=== PATIENT | male | born 1945 | race Caucasian/White ===

== ENCOUNTER 2018-07-11 08:30 | Outpatient (RCR) | payer MEDICARE, OTHER, SELFPAY ==
[2018-04-02 12:13] VITALS: BP 102/64; O2SAT 96; BMI 32.5
--- NOTE | 2018-04-02 15:50 | CR.IEVALNOTE ---
02/27/18 CABG 3-VESSEL CR Initial Assessment Report CR Cardiac Rehab Initial Assessment Start: 04/02/18 12:13 Freq: Status: Active Protocol: Document 04/02/18 12:13 ENIO (Rec: 04/02/18 12:46 ABNER [id number]) Cardiac Rehabilitation Exercise Risk Risk Moderate % 60 AICD No Pacemaker No Heart Rhythm SINUS RAHUL Right Arm Blood Pressure (90/60-120/80 mmHg) 102/64 Blood Pressure Method Manual Cuff/Auscultation BP Comment: 106/62 LEFT ARM Apical Resting Heart Rate: 49 Target Heart Rate: 80 Strength: Normal Respiratory Effort Non-Labored Pulse Oximetry (91-100 %) 96 Cardiac Rehabilitation Nutrition Evaluation Recent Lipid Blood Test No: NONE OBTAINED-REQUESTED Lipid Medications Yes Goal for Lipids LIPITOR 40MG History of Diabetes No Cardiac Rehabilitation Weight Management Plan Height 182.88 cm Weight 108.862 kg Body Mass Index (BMI) 32.5 Patient Goal(s) Lose 1-2 of Girth Vitamins & Supplements Yes Use None/Never Nutrition Evaluation Referral to Diabetes Education No Nurse/Patient Discussion Yes Patient Following Diet Plan No Patient's Nutritional Goals REVIEWED EATING HABITS. VERY OPEN TO CHANGE. DISCUSSED DRINKING MORE WATE,LESS BROWN SUGAR ON OATMEAL, ADD WALNUTS, LESS BREAD. EATS VERY LITTLE RED MEAT. Education Primary Language MACEDONIAN Supervisor Assembly Room Required No Hearing Ability Normal Visual Impairment No Limitations Visual Difficutly None Education on Intake Chest Pain Short of Breath Headache Lightheaded or Dizzy Musculoskeletal Pain General Malaise Tobacco Use N/A Hx Hypertension No Goal of BP <130/80 No Medications Reconciled Yes CR Psychosocial Evaluation Goal VERY MOTIVATED TO START EXERCISING WE WILL PROGRESS HIM SLOWLY WHICH WILL GIVE HIM CONFEDENCE TO CYCLE WITH HIS FRIENDS AGAIN. Identifies Stressors NOT BEING ABLE TO BIKE WITH HIS FRIENDS Psych Consult No Discussion with Patient Yes Psychotropic Medications No HQ Scoring Scale 0-4 = None Positive Support VERY POSITIVE ABOUT LIFE Situation LIVES AT HOME WITH . 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 SKIED OVER 30X AND COULD NOT MAKE IT DOWN THE HILL WITHOUT STOPPING. WENT TO HIS PHYSICIAN INTERNIST WHO REFERRED TO DR. VELAZCO WHO RECOMMENDED CABG. Treatment Prescribed for Individual Yes Needs No Treatment Change Yes: Please Continue with Cardiopulmonary Rehabilitation as Ordered Date 04/02/18 Document 04/02/18 13:06 CFS (Rec: 04/02/18 13:20 CFS [id number]) Cardiac Rehabilitation Exercise Fall Risk History of Falling (Immediate or No Previous) Secondary Diagnosis (More Than 2 Medical Yes Diagnoses) Ambulatory Aid None/bed rest/nurse assist IV/Heparin Lock No Gait/Transferring Normal/bedrest/immobile Mental Status Oriented to own ability Score Total 15 Risk Level Low Fall Risk Action Implement Ramona Fall Risk Precautions Comment Will start with saucer under physioball next to railing Assistive Devices None Uribe Activity Status Index 9.89 Home Exercise No Mode Comment: walking Duration Comment: 1-2mi Frequency Comment: daily Symptoms: Joint Pain Joint Stiffness Limited Range of Motion Body Alignment Posture Good Posture Ambulation Assistive Device None Orthotic/Prosthetic Devices or Brace: No Comment R shoulder limited ROM, L Hip pain, bilat knee replacements Exercise TM METS 3.60 Angina with Exercise no Exercise Tolerance Good CR Pre Exercise Evaluation Orientation Self Pulse Check LIZETTE PRE Scale Exercise Safety Equipment Orientation Warm Up/Cool Down Patient Short-term Goal(s) Start doing a spin class in 8 weeks to help get in shape for LTG. Patient Fci Goal(s) Return to biking up [place] with normal group and keep up with them in 12 weeks by doing HIIT on UB, NS, EP. CR Exercises Prescription Exercise Duration (minutes) 20 METs (resistance level) 4 Frequency 2x/wk RPE 11-14 Bicycle RPM (rpm) 60 Bicycle Exercise Duration (minutes) 20 Frequency 2x/wk RPE 11-14 Pounds 4 Number of Reps 12 Number of Sets 2 Frequency 1x/wk RPE 13-14 Comment sternal precautions Band Resistance 3 Number of Reps 12 Number of Sets 1 Frequency 1x/wk RPE 13-14 Comment sternal precautions
[2018-05-01 15:57] VITALS: BP 118/72
--- NOTE | 2018-05-01 16:03 | CR.REVALNOTE ---
CR Initial Assessment Report 02.27.18 CABG X 3 CR Cardiac Rehab Re-Assessment Start: 04/02/18 12:13 Freq: Status: Active Protocol: Document 05/01/18 15:47 AA (Rec: 05/01/18 15:57 AA [id number]) Cardiac Rehab Exercise Risk Re-Eval Dx: 02.27.18 CABG 3-VESSEL. HX CKD GERD Apical Resting Heart Rate: 79 Target Heart Rate Comment: High HR 130 Strength: Strong Pulse Rhythm: Regular CR Lifestyle Re-Assessment Home Exercise Yes Mode Comment Biking Duration Comment 60-90 min Frequency Comment 4x/wk Achieved Exercise Re-Evaluation LEN MET Goal 7.3 Bike MET Goal 22.39 TM MET Goal 7.65 RPE 15 Weights 5 Bands 4 Equipment Goals TM 8.5 LEN 8.0 UB 23.0 Number/Value 6 LVL 5 Progress to Goal INCREASE TOLERATED % Improvement TM 113% UB 126% LEN 64% Short Term Goal acheived. Has returned to road biking at home. 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 Will continue to road bike and bike Daniel Nichole. HIIT well tolerated on UB & LEN. Document 05/01/18 15:57 [facility] (Rec: 05/01/18 16:03 [facility] [id number]) Cardiac Rehab Exercise Risk Re-Eval Risk Moderate Heart Rhythm NSR Right Arm Blood Pressure (90/60-120/80 mmHg) 118/72 Blood Pressure Method Manual Cuff/Auscultation Cardiac Rehab Nutrition Re-Eval Lipids Re-Drawn No Education LONG DISCUSSION ON HOW TO REDUCE TRIGLYCERIDES. History of Diabetes No Weight 240 kg Progress to Weight Goal NO WEIGHT LOSS Dietary Consult Yes Nurse/Patient Discussion Yes Nutrition Class Yes Dietary Goal verbalized by Patient EAT HEALTHIER WHICH HE SEEMS TO BE DOING Progress Note LONG DISCUSSIONS ON HEALTHY EATING Education Hypertension 118/72 Medications METOPROLOL Education:Instruct JENS DONE Medication Reconciled DONE CR Psychosocial Re-Evaluation Progress to Goal FEELS VERY POSITIVE ON EXERCISE AND EATING HEALTHIER. 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
--- NOTE | 2018-05-01 16:06 | CR.REVALNOTE ---
CR RE Assessment Report CR Cardiac Rehab Re-Assessment Start: 04/02/18 12:13 Freq: Status: Active Protocol: Document 05/01/18 15:47 AA (Rec: 05/01/18 15:57 AA [id number]) Cardiac Rehab Exercise Risk Re-Eval Dx: 02.27.18 CABG 3-VESSEL. HX CKD GERD Apical Resting Heart Rate: 79 Target Heart Rate Comment: High HR 130 Strength: Strong Pulse Rhythm: Regular CR Lifestyle Re-Assessment Home Exercise Yes Mode Comment Biking Duration Comment 60-90 min Frequency Comment 4x/wk Achieved Exercise Re-Evaluation LEN MET Goal 7.3 Bike MET Goal 22.39 TM MET Goal 7.65 RPE 15 Weights 5 Bands 4 Equipment Goals TM 8.5 LEN 8.0 UB 23.0 Number/Value 6 LVL 5 Progress to Goal INCREASE TOLERATED % Improvement TM 113% UB 126% LEN 64% Short Term Goal acheived. Has returned to road biking at home. 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 Will continue to road bike and bike Daniel [place]. HIIT well tolerated on UB & LEN. Document 05/01/18 15:57 [facility] (Rec: 05/01/18 16:03 [facility] [id number]) Cardiac Rehab Exercise Risk Re-Eval Risk Moderate Heart Rhythm NSR Right Arm Blood Pressure (90/60-120/80 mmHg) 118/72 Blood Pressure Method Manual Cuff/Auscultation Cardiac Rehab Nutrition Re-Eval Lipids Re-Drawn No Education LONG DISCUSSION ON HOW TO REDUCE TRIGLYCERIDES. History of Diabetes No Weight 240 kg Progress to Weight Goal NO WEIGHT LOSS Dietary Consult Yes Nurse/Patient Discussion Yes Nutrition Class Yes Dietary Goal verbalized by Patient EAT HEALTHIER WHICH HE SEEMS TO BE DOING Progress Note LONG DISCUSSIONS ON HEALTHY EATING Education Hypertension 118/72 Medications METOPROLOL Education:Instruct JENS DONE Medication Reconciled DONE CR Psychosocial Re-Evaluation Progress to Goal FEELS VERY POSITIVE ON EXERCISE AND EATING HEALTHIER. 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
--- NOTE | 2018-05-01 16:07 | CR.REVALNOTE ---
CR RE Assessment Report 02.27.2018 CABG X3 CR Cardiac Rehab Re-Assessment Start: 04/02/18 12:13 Freq: Status: Active Protocol: Document 05/01/18 15:47 AA (Rec: 05/01/18 15:57 AA [id number]) Cardiac Rehab Exercise Risk Re-Eval Dx: 02.27.18 CABG 3-VESSEL. HX CKD GERD Apical Resting Heart Rate: 79 Target Heart Rate Comment: High HR 130 Strength: Strong Pulse Rhythm: Regular CR Lifestyle Re-Assessment Home Exercise Yes Mode Comment Biking Duration Comment 60-90 min Frequency Comment 4x/wk Achieved Exercise Re-Evaluation LEN MET Goal 7.3 Bike MET Goal 22.39 TM MET Goal 7.65 RPE 15 Weights 5 Bands 4 Equipment Goals TM 8.5 LEN 8.0 UB 23.0 Number/Value 6 LVL 5 Progress to Goal INCREASE TOLERATED % Improvement TM 113% UB 126% LEN 64% Short Term Goal acheived. Has returned to road biking at home. 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 Will continue to road bike and bike [place]. HIIT well tolerated on UB & LEN. Document 05/01/18 15:57 [facility] (Rec: 05/01/18 16:03 [facility] [id number]) Cardiac Rehab Exercise Risk Re-Eval Risk Moderate Heart Rhythm NSR Right Arm Blood Pressure (90/60-120/80 mmHg) 118/72 Blood Pressure Method Manual Cuff/Auscultation Cardiac Rehab Nutrition Re-Eval Lipids Re-Drawn No Education LONG DISCUSSION ON HOW TO REDUCE TRIGLYCERIDES. History of Diabetes No Weight 240 kg Progress to Weight Goal NO WEIGHT LOSS Dietary Consult Yes Nurse/Patient Discussion Yes Nutrition Class Yes Dietary Goal verbalized by Patient EAT HEALTHIER WHICH HE SEEMS TO BE DOING Progress Note LONG DISCUSSIONS ON HEALTHY EATING Education Hypertension 118/72 Medications METOPROLOL Education:Instruct JENS DONE Medication Reconciled DONE CR Psychosocial Re-Evaluation Progress to Goal FEELS VERY POSITIVE ON EXERCISE AND EATING HEALTHIER. 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
--- NOTE | 2018-05-09 09:46 | CR.EDUC ---
CR Education Report JOSÉ MIGUEL ULLOA CR Education Start: 04/02/18 12:13 Freq: Status: Active Protocol: Document 04/03/18 09:40 DEVAUGHN (Rec: 04/03/18 09:40 DEVAUGHN [id number]) CR Education Education HOLISTIC NUTRITION AND MEDITATION WITH MICHELA Document 04/04/18 13:36 JCP (Rec: 04/04/18 13:37 JCP [id number]) CR Education Education TOLERATED EXERCISE WELL. WILL CONTINUE TO INCREASE HIS RESISTANCE. HE IS EAGER TO IMPROVE. RECEIVED HIS LIPIDS WILL REVIEW WITH HIM.SILVIA Document 04/17/18 09:40 DEVAUGHN (Rec: 04/17/18 09:41 DEVAUGHN [id number]) CR Education Education MRSA WITH SHAD Document 04/24/18 15:41 JCP (Rec: 04/24/18 15:42 JCP [id number]) CR Education Education ANTI INFLAMMATORY FOODS AND MEDITATION Document 05/01/18 12:06 JCP (Rec: 05/01/18 12:06 JCP [id number]) CR Education Education MET WITH EDITH NIXON RD Document 05/08/18 15:56 JCP (Rec: 05/08/18 15:57 JCP [id number]) CR Education Education MET WITH ALEJANDRO ELIZABETH ON METS Education DISCUSSION ON CAUTION WITH HIS MOUNTAIN BIKING. CONTINUE TALKS ON HIS EATING HABITS. Document 05/09/18 09:44 JCP (Rec: 05/09/18 09:46 JCP [id number]) CR Education Education AGAIN REINFORCED NOT TO MOUNTAIN BIKE UNTIL HE IS 3 MONTHS POST STERNOTOMY. HE IS MOUNTAIN BIKING HE STATES ON [place]. ALSO CONTINUE TO TALK TO HIM ABOUT HIS UNHEALTHY FOOD CHOICES.SILVIA
[2018-05-29 15:45] VITALS: BP 118/68
[2018-06-27 08:10] VITALS: BP 120/80
[2018-07-11 10:36] VITALS: BMI 32.6
[2018-07-11 15:43] VITALS: BP 110/76
== END 2018-07-17 10:48 ==
LOC: CAR 08:30
PROVIDERS: Family Provider Physician Assistant; PCP Physician Assistant; Visit Provider Physician Assistant Surgical
DX: Z95.1 Presence of aortocoronary bypass graft (principal)
CPT/HCPCS: 93798

== ENCOUNTER → 2018-09-24 10:33 | Outpatient (CLI) | payer MEDICARE, OTHER, SELFPAY ==
--- NOTE | 2018-09-24 | DI.RAD.S_ITS ---
PROCEDURE: XR SHOULDER RT MIN 2V INDICATIONS: PAIN IN RIGHT SHOULDER TECHNIQUE: 3 views of the shoulder were acquired. COMPARISON: None. FINDINGS: Bones: No fractures or dislocations. No suspicious bony lesions. Visualized ribs appear intact. Severe right shoulder glenohumeral joint degeneration. There is also moderate to severe acromioclavicular degenerative joint disease. Subcentimeter possible loose body projecting near the coracoid process IMPRESSION: Severe right shoulder joint degeneration. Possible loose body. Dictated by: Sheldon Magana M.D. on 09/24/2018 at 12:25 Approved by: Sheldon Magana M.D. on 09/24/2018 at 12:27
== END ==
PROVIDERS: Family Provider Physician Assistant; PCP Physician Assistant; Visit Provider Physician Assistant
DX: M25.511 Pain in right shoulder (principal); M19.011 Primary osteoarthritis, right shoulder
CPT/HCPCS: 73030

== ENCOUNTER → 2018-10-10 09:59 | Outpatient (CLI) | payer MEDICARE, OTHER, SELFPAY ==
--- NOTE | 2018-10-10 | DI.US.S_ITS ---
PROCEDURE: US RENAL COMPLETE INDICATIONS: SCREENING TECHNIQUE: Real-time scanning was performed of the kidneys and bladder, with image documentation. COMPARISON: None. FINDINGS: Kidneys: Kidneys are normal in size. Right kidney measures 11.6 cm long; left kidney measures 11.1 cm long. Right renal cortical thickness is 1.4 cm; left renal cortical thickness is 1.7 cm. Renal cortical echotexture is normal. No hydronephrosis or nephrolithiasis on the right but there is a 8mm calculus in the inferior third collecting system of the left kidney not causing hydronephrosis. No suspicious solid mass lesions. Bladder: Pre-void bladder volume is 159 mL. Post-void residual is 12 mL. Pre-void images demonstrate no intraluminal masses or stones. On pre-void images, bilateral ureteral jets are noted with color Doppler interrogation. (Of note, ureteral jets may not be detectable in up to 25% of cases due to insufficient differences in specific gravity between ureteral and bladder urine). Miscellaneous: No free pelvic fluid. IMPRESSION: Single 8mm stone found at the inferior third collecting system of the left kidney. No hydronephrosis or nephrolithiasis found otherwise. Normal bladder function. Dictated by: Arnulfo Alvarado M.D. on 10/10/2018 at 16:15 Approved by: Arnulfo Alvarado M.D. on 10/10/2018 at 16:16
[2018-10-10 12:12] LABS: Creatinine Urine Random 97.8 mg/dL
[2018-10-10 12:15] LABS: Protein (Total) Urine Random < 5 mg/dL (0-12); Protein Creatinine Ratio Urine 0.05 GRAM/24H
== END ==
PROVIDERS: Family Provider Physician Assistant; PCP Physician Assistant; Referring Provider Student in an Organized Health Care Education/Training Program; Visit Provider Physician Assistant
DX: N20.0 Calculus of kidney (principal); N18.3 Chronic kidney disease, stage 3 (moderate); R80.9 Proteinuria, unspecified
CPT/HCPCS: 76770; 82570; 84156

== ENCOUNTER → 2019-01-01 07:51 | Outpatient (CLI) | payer MEDICARE, OTHER, SELFPAY ==
[2019-01-01 08:02] LABS: RBC Urine None Seen (0-5/HPF)
[2019-01-01 08:51] LABS: Appearance Urine UA CLEAR; Bilirubin Urine UA NEGATIVE (NEGATIVE); Color Urine UA YELLOW; Glucose Urine UA NEGATIVE (Negative); Ketones Urine UA NEGATIVE (NEGATIVE); Leukocyte Esterase Urine UA NEGATIVE (NEGATIVE); Nitrite Urine UA NEGATIVE (Negative); Occult Blood Urine UA NEGATIVE (Negative); Protein Urine UA NEGATIVE (Negative); Urobilinogen Urine UA 0.2 E.U./dL (0.2); pH Urine UA 6.5 (4.5-8.0)
[2019-01-01 08:56] LABS: Hematocrit 40.8 % (41-53); Hemoglobin 13.6 g/dL (13.5-17.5)
[2019-01-01 09:36] LABS: BUN Creatinine Ratio 18.6 (6-22); Blood Urea Nitrogen 26 mg/dL (9-20); Calcium 9.2 mg/dL (8.4-10.2); Carbon Dioxide 25 mmol/L (22-32); Chloride 107 mmol/L (98-107); Glucose 94 mg/dL (80-110); HEMOLYSIS < 15 (0-50); Phosphorous 3.8 mg/dL (2.3-3.7); Potassium 4.3 mmol/L (3.4-5.1); Sodium 140 mmol/L (137-145)
[2019-01-01 09:53] LABS: Bacteria Urine Few (2-10); WBC Urine 0-1/HPF (0-5/HPF)
[2019-01-01 09:54] LABS: HEMOLYSIS < 15 (0-50); Iron 48 ug/dL (49-181)
[2019-01-01 09:55] LABS: Creatinine Urine Random 103.5 mg/dL
[2019-01-01 10:01] LABS: Protein (Total) Urine Random < 5 mg/dL (0-12); Protein Creatinine Ratio Urine 0.04 GRAM/24H
[2019-01-01 10:06] LABS: Ferritin 14.8 ng/mL (17.9-464); Percent Iron Saturation 15 % (20-50); Total Iron Binding Capacity 323 ug/dL (261-462); Transferrin 244 mg/dL (206-381)
[2019-01-04 15:42] LABS: Parathyroid Hormone Int 50 pg/mL (14-64)
== END ==
PROVIDERS: Family Provider Physician Assistant; PCP Physician Assistant; Visit Provider Student in an Organized Health Care Education/Training Program
DX: N05.9 Unspecified nephritic syndrome with unspecified morphologic changes (principal); D50.0 Iron deficiency anemia secondary to blood loss (chronic); D64.9 Anemia, unspecified; E83.30 Disorder of phosphorus metabolism, unspecified; R80.9 Proteinuria, unspecified; N30.00 Acute cystitis without hematuria; N25.81 Secondary hyperparathyroidism of renal origin
CPT/HCPCS: 36415; 80048; 81001; 82570; 82728; 83540; 83550; 83970; 84100; 84156; 85014; 85018; 87086

== ENCOUNTER → 2019-05-07 10:16 | Outpatient (CLI) | payer MEDICARE, OTHER, SELFPAY ==
[2019-05-07 11:19] LABS: BUN Creatinine Ratio 21.4 (6-22); Blood Urea Nitrogen 30 mg/dL (9-20); Calcium 9.2 mg/dL (8.4-10.2); Carbon Dioxide 25 mmol/L (22-32); Chloride 105 mmol/L (98-107); Glucose 84 mg/dL (80-110); HEMOLYSIS < 15 (0-50); Potassium 4.3 mmol/L (3.4-5.1); Sodium 140 mmol/L (137-145)
== END ==
PROVIDERS: Family Provider Physician Assistant; PCP Physician Assistant; Visit Provider Student in an Organized Health Care Education/Training Program
DX: N05.9 Unspecified nephritic syndrome with unspecified morphologic changes (principal)
CPT/HCPCS: 36415; 80048

== ENCOUNTER → 2019-09-22 19:04 | Outpatient (ROUT) | payer MEDICARE, OTHER, SELFPAY ==
[2019-09-22 19:10] LABS: Add Manual Diff / Slide Review NO; Basophils Absolute Auto 0 /uL (0-100); Basophils Percent Auto 0.5 % (0-2); Eosinophils Absolute Auto 100 /uL (0-450); Eosinophils Percent Auto 1.5 % (2-4); Hemoglobin 14.4 g/dL (13.5-17.5); Lymphocytes Absolute Auto 1700 /uL (1100-4500); Lymphocytes Percent Auto 20.2 % (25-40); Mean Corpuscular HGB Conc 33.6 % (30-36); Mean Corpuscular Hemoglobin 29.4 PG (26-34); Mean Corpuscular Volume 87.5 fL (80-100); Monocytes Absolute Auto 200 /uL (0-900); Monocytes Percent Auto 1.9 % (3-14); Neutrophils Absolute Auto 6300 /uL (1500-7000); Neutrophils Percent Auto 75.9 % (50-75); Platelet Count 212 X10^3/uL (150-400); Red Blood Cell Count 4.92 X10^6/uL (4.5-5.9); Red Cell Distribution Width 13.2 % (11.6-14.8); White Blood Cell Count 8.3 X10^3/uL (4.5-11.0)
[2019-09-22 19:16] LABS: Alanine Aminotransferase 19 IU/L (<50); Albumin 4.3 g/dL (3.5-5.0); Albumin Globulin Ratio 1.5 (1.0-2.8); Alkaline Phosphatase 80 U/L (38-126); Aspartate Aminotransferase 27 IU/L (17-59); BUN Creatinine Ratio 20.7 (6-22); Bilirubin Total 0.6 mg/dL (0.2-1.3); Blood Urea Nitrogen 29 mg/dL (9-20); Calcium 9.6 mg/dL (8.4-10.2); Carbon Dioxide 24 mmol/L (22-32); Chloride 104 mmol/L (98-107); Cholesterol 270 mg/dL (140-199); Estimated Glomerular Filt Rate 49.8 mL/min (>60); Globulin 2.9 g/dL (1.7-4.1); Glucose 98 mg/dL (80-110); HDL Cholesterol 47 mg/dL (40-60); HEMOLYSIS < 15 (0-50); LDL Cholesterol Calculated 189 mg/dL (<100); Sodium 138 mmol/L (137-145); Total Protein 7.2 g/dL (6.3-8.2); Triglycerides 172 mg/dL (35-150)
== END ==
PROVIDERS: Family Provider Physician Assistant; PCP Physician Assistant; Visit Provider Physician Assistant
DX: I25.10 Atherosclerotic heart disease of native coronary artery without angina pectoris (principal); E78.5 Hyperlipidemia, unspecified; K21.9 Gastro-esophageal reflux disease without esophagitis
CPT/HCPCS: 80053; 80061; 85025

== ENCOUNTER → 2019-11-10 11:36 | Outpatient (CLI) | payer MEDICARE, OTHER, SELFPAY ==
[2019-11-10 12:06] LABS: Hematocrit 41.8 % (41-53); Hemoglobin 14.2 g/dL (13.5-17.5)
[2019-11-10 12:18] LABS: BUN Creatinine Ratio 19.3 (6-22); Blood Urea Nitrogen 29 mg/dL (9-20); Calcium 9.4 mg/dL (8.4-10.2); Carbon Dioxide 23 mmol/L (22-32); Chloride 107 mmol/L (98-107); Glucose 94 mg/dL (80-110); HEMOLYSIS < 15 (0-50); Potassium 4.6 mmol/L (3.4-5.1); Sodium 140 mmol/L (137-145)
[2019-11-13 15:23] LABS: Parathyroid Hormone Int 23 pg/mL (14-64)
== END ==
PROVIDERS: Family Provider Physician Assistant; PCP Physician Assistant; Referring Provider Student in an Organized Health Care Education/Training Program; Visit Provider Student in an Organized Health Care Education/Training Program
DX: N05.9 Unspecified nephritic syndrome with unspecified morphologic changes (principal); D64.9 Anemia, unspecified; N25.81 Secondary hyperparathyroidism of renal origin; R80.9 Proteinuria, unspecified
CPT/HCPCS: 36415; 80048; 83970; 85014; 85018

== ENCOUNTER → 2019-11-13 14:31 | Outpatient (CLI) | payer MEDICARE, OTHER, SELFPAY ==
[2019-11-13 15:49] LABS: Creatinine Urine Random 117.4 mg/dL; Protein (Total) Urine Random 6 mg/dL (0-12); Protein Creatinine Ratio Urine 0.05 GRAM/24H
== END ==
PROVIDERS: Family Provider Physician Assistant; PCP Physician Assistant; Referring Provider Student in an Organized Health Care Education/Training Program; Visit Provider Student in an Organized Health Care Education/Training Program
DX: N05.9 Unspecified nephritic syndrome with unspecified morphologic changes (principal); D64.9 Anemia, unspecified; N25.81 Secondary hyperparathyroidism of renal origin; R80.9 Proteinuria, unspecified
CPT/HCPCS: 82570; 84156

== ENCOUNTER → 2020-05-21 20:17 | Outpatient (ROUT) | payer MEDICARE, OTHER, SELFPAY ==
[2020-05-21 20:31] LABS: Alanine Aminotransferase 21 IU/L (<50); Albumin Globulin Ratio 1.4 (1.0-2.8); Alkaline Phosphatase 102 U/L (38-126); Aspartate Aminotransferase 34 IU/L (17-59); BUN Creatinine Ratio 17.2 (6-22); Bilirubin Total 0.7 mg/dL (0.2-1.3); Blood Urea Nitrogen 26 mg/dL (9-20); Carbon Dioxide 24 mmol/L (22-32); Chloride 107 mmol/L (98-107); Cholesterol 183 mg/dL (140-199); Estimated Glomerular Filt Rate 45.7 mL/min (>60); Globulin 2.9 g/dL (1.7-4.1); Glucose 117 mg/dL (80-110); HDL Cholesterol 49 mg/dL (40-60); HEMOLYSIS 25 (0-50); LDL Cholesterol Calculated 95 mg/dL (<100); Potassium 4.4 mmol/L (3.4-5.1); Sodium 138 mmol/L (137-145); Total Protein 6.9 g/dL (6.3-8.2); Triglycerides 195 mg/dL (35-150)
[2020-05-21 21:08] LABS: Add Manual Diff / Slide Review NO; Basophils Absolute Auto 100 /uL (0-100); Basophils Percent Auto 0.8 % (0-2); Eosinophils Absolute Auto 100 /uL (0-450); Eosinophils Percent Auto 1.7 % (2-4); Hematocrit 42.8 % (41-53); Hemoglobin 14.4 g/dL (13.5-17.5); Lymphocytes Absolute Auto 1600 /uL (1100-4500); Lymphocytes Percent Auto 22.4 % (25-40); Mean Corpuscular HGB Conc 33.7 % (30-36); Mean Corpuscular Hemoglobin 29.6 PG (26-34); Monocytes Absolute Auto 600 /uL (0-900); Monocytes Percent Auto 8.1 % (3-14); Neutrophils Absolute Auto 4700 /uL (1500-7000); Platelet Count 191 X10^3/uL (150-400); Red Blood Cell Count 4.86 X10^6/uL (4.5-5.9); Red Cell Distribution Width 13.7 % (11.6-14.8)
[2020-05-23 07:10] LABS: PSA Free % 30.8 % (.); PSA, Total 2.5 ng/mL (0.0-4.0)
== END ==
PROVIDERS: Family Provider Physician Assistant; PCP Physician Assistant; Visit Provider Physician Assistant
DX: N40.0 Benign prostatic hyperplasia without lower urinary tract symptoms (principal); E78.5 Hyperlipidemia, unspecified; I25.10 Atherosclerotic heart disease of native coronary artery without angina pectoris
CPT/HCPCS: 80053; 80061; 84153; 84154; 85025

== ENCOUNTER → 2020-06-02 09:05 | Outpatient (CLI) | payer MEDICARE, OTHER, SELFPAY ==
[2020-06-02 09:49] LABS: Hematocrit 41.7 % (41-53); Hemoglobin 13.9 g/dL (13.5-17.5)
[2020-06-02 10:22] LABS: BUN Creatinine Ratio 16.9 (6-22); Blood Urea Nitrogen 25 mg/dL (9-20); Calcium 9.2 mg/dL (8.4-10.2); Carbon Dioxide 22 mmol/L (22-32); Chloride 108 mmol/L (98-107); Estimated Glomerular Filt Rate 46.7 mL/min (>60); Glucose 100 mg/dL (80-110); HEMOLYSIS < 15 (0-50); Potassium 4.8 mmol/L (3.4-5.1); Sodium 138 mmol/L (137-145)
[2020-06-02 11:18] LABS: Protein (Total) Urine Random 5 mg/dL (0-12); Protein Creatinine Ratio Urine 0.03 GRAM/24H
[2020-06-03 07:09] LABS: Parathyroid Hormone Int 51 pg/mL (15-65)
[2020-06-03 09:32] LABS: Cholesterol 208 mg/dL (140-199); HDL Cholesterol 50 mg/dL (40-60); LDL Cholesterol Calculated 123 mg/dL (<100); Triglycerides 173 mg/dL (35-150)
[2020-06-04 07:09] LABS: PSA Free % 32.9 % (.); PSA, Total 3.1 ng/mL (0.0-4.0)
== END ==
PROVIDERS: Family Provider Physician Assistant; PCP Physician Assistant; Referring Provider Student in an Organized Health Care Education/Training Program; Visit Provider Student in an Organized Health Care Education/Training Program
DX: N05.9 Unspecified nephritic syndrome with unspecified morphologic changes (principal); D64.9 Anemia, unspecified; R80.9 Proteinuria, unspecified; I25.10 Atherosclerotic heart disease of native coronary artery without angina pectoris; N25.81 Secondary hyperparathyroidism of renal origin
CPT/HCPCS: 36415; 80048; 80061; 82570; 83970; 84153; 84154; 84156; 85014; 85018

== ENCOUNTER → 2021-04-12 14:32 | Outpatient (CLI) | payer MEDICARE, OTHER, SELFPAY ==
[2021-04-12 15:40] LABS: Hematocrit 39.3 % (41-53)
[2021-04-12 15:48] LABS: BUN Creatinine Ratio 18.1 (6-22); Blood Urea Nitrogen 26 mg/dL (9-20); Calcium 9.1 mg/dL (8.4-10.2); Carbon Dioxide 26 mmol/L (22-32); Chloride 108 mmol/L (98-107); Estimated Glomerular Filt Rate 48.1 mL/min (>60); Glucose 107 mg/dL (80-110); HEMOLYSIS 21 (0-50); Potassium 4.8 mmol/L (3.4-5.1); Sodium 141 mmol/L (137-145)
[2021-04-12 16:05] LABS: Creatinine Urine Random 111.3 mg/dL; Protein (Total) Urine Random 6 mg/dL (0-12); Protein Creatinine Ratio Urine 0.05 GRAM/24H
[2021-04-13 08:10] LABS: Parathyroid Hormone Int 44 pg/mL (15-65)
== END ==
PROVIDERS: Family Provider Physician Assistant; PCP Physician Assistant; Referring Provider Student in an Organized Health Care Education/Training Program; Visit Provider Student in an Organized Health Care Education/Training Program
DX: N05.9 Unspecified nephritic syndrome with unspecified morphologic changes (principal); D64.9 Anemia, unspecified; N25.81 Secondary hyperparathyroidism of renal origin; R80.9 Proteinuria, unspecified
CPT/HCPCS: 36415; 80048; 82570; 83970; 84156; 85014; 85018

== ENCOUNTER → 2021-05-06 09:59 | Outpatient (CLI) | payer MEDICARE, OTHER, SELFPAY ==
--- NOTE | 2021-05-06 14:50 | DIET.PN ---
Dietary Progress Note Assessment: 75y M attending RD visit c his for help with dietary reccs for CKD3 and recurrent kidney stones. Pt is active 75y male who rides bicycle 1.5h 3x/w socially. He eats relatively healthy diet including fresh fruits and veggies with intake 3 bottles of beer each week. Pt feels the worst part of his diet is the occasional [employer] TV dinner at home. When eating out, chooses healthy, lite options. Pt is interested in nutrition education to reduce risk of kidney stone formation and to preserve renal fxn. HT: 6'1 WT: 250# BMI: 33 Labs: Renal Fx Trends x3y: eGFR 46-50L, Cr 1.4 H, K+ 4.0-4.8 WNL, no phosphorus labs on record Pt gets Litholink testing q6mo with kidney stone risk factors of elevated urine oxalates, elevated urine acid, and decreased urine volume. Nutrition Diagnosis: altered nutrition related laboratory values (renal) r/t undesirable food choices aeb pt has CKD3 and recurrent kidney stones, eGFR 50, Cr 1.4, urine volume 1.5L, uOxalate 46, urine pH 5.85, pt desires nutrition interventions to decrease risk of kidney stones and preserve renal fxn. Interventions: 1. Provided pt handout on Healthy Convenience Meals which limit sodium, saturated fat, calories, and provide adequate fiber. Pt will use document when purchasing convenience meals. 2. Educated pt on CKD3 while reviewing labs. Educated pt on kidney friendly, low sodium, lean proteins to eat in small portions while reducing intake beans/nuts/seeds secondary to oxalate content. 3. Educated pt on CKD3 while reviewing labs. Educated pt on high and low potassium foods. Provided renal nutrition plate document and collaborated c pt and on modifications to usual intake including limiting bananas and non-boiled potatoes. 4. Educated pt and about phosphate food additives. Practiced reading food labels together to identify sources of phosphate ingredients. 5. Using Kidney Stone Nutrition handout, reviewed strategies to decrease uOxalate, upH, and increase urine volume. Pt will incorporate more low-potassium fruits and veggies into diet, will continue to avoid beans/nuts/seeds, consume calcium rich foods with each meal to bind oxalates, and will aim to drink water throughout the day rather than only when feeling thirsty. EER: 2g Na and 2g K+ restriction Monitoring/Evaluations: f/u in 6mo to review labs and refine nutrition interventions
== END ==
PROVIDERS: Family Provider Physician Assistant; PCP Physician Assistant; Referring Provider Physician Assistant; Visit Provider Physician Assistant
DX: N18.31 Chronic kidney disease, stage 3a (principal); Z87.442 Personal history of urinary calculi; E66.9 Obesity, unspecified; Z68.33 Body mass index [BMI] 33.0-33.9, adult; Z71.3 Dietary counseling and surveillance
CPT/HCPCS: 97802

== ENCOUNTER → 2022-06-26 10:20 | Outpatient (CLI) | payer MEDICARE, OTHER, SELFPAY ==
[2022-06-26 15:02] LABS: Creatinine Urine Random 96.1 mg/dL
[2022-06-26 15:03] LABS: Protein (Total) Urine Random < 5 mg/dL (0-12); Protein Creatinine Ratio Urine 0.05 GRAM/24H
[2022-06-26 15:06] LABS: Hematocrit 38.7 % (41-53)
[2022-06-26 15:23] LABS: BUN Creatinine Ratio 17.7 (6-22); Blood Urea Nitrogen 28 mg/dL (9-20); Calcium 8.6 mg/dL (8.4-10.2); Carbon Dioxide 26 mmol/L (22-32); Chloride 105 mmol/L (98-107); Estimated Glomerular Filt Rate 46 mL/min (>60); Glucose 86 mg/dL (80-110); HEMOLYSIS < 15 (0-50); Potassium 4.3 mmol/L (3.4-5.1); Sodium 140 mmol/L (137-145)
[2022-06-27 05:12] LABS: Parathyroid Hormone Int 64 pg/mL (15-65)
== END ==
PROVIDERS: Family Provider Physician Assistant; PCP Physician Assistant; Referring Provider Student in an Organized Health Care Education/Training Program; Visit Provider Student in an Organized Health Care Education/Training Program
DX: N05.9 Unspecified nephritic syndrome with unspecified morphologic changes (principal); D64.9 Anemia, unspecified; N25.81 Secondary hyperparathyroidism of renal origin; R80.9 Proteinuria, unspecified
CPT/HCPCS: 36415; 80048; 82570; 83970; 84156; 85014; 85018

== ENCOUNTER → 2022-11-24 12:56 | Outpatient (CLI) | payer MEDICARE, OTHER, SELFPAY ==
[2022-11-24 13:18] LABS: Hematocrit 38.8 % (41-53); Hemoglobin 12.8 g/dL (13.5-17.5)
[2022-11-24 13:42] LABS: BUN Creatinine Ratio 15.6 (6-22); Blood Urea Nitrogen 23 mg/dL (9-20); Calcium 8.7 mg/dL (8.4-10.2); Carbon Dioxide 24 mmol/L (22-32); Chloride 103 mmol/L (98-107); Estimated Glomerular Filt Rate 49 mL/min (>60); Glucose 80 mg/dL (80-110); HEMOLYSIS < 15 (0-50); Potassium 4.6 mmol/L (3.4-5.1); Sodium 137 mmol/L (137-145)
[2022-11-24 14:30] LABS: Creatinine Urine Random 75.1 mg/dL; Protein (Total) Urine Random 6 mg/dL (0-12); Protein Creatinine Ratio Urine 0.07 GRAM/24H
[2022-11-25 09:56] LABS: Parathyroid Hormone Int 88 pg/mL (15-65)
== END ==
PROVIDERS: Family Provider Physician Assistant; PCP Physician Assistant; Referring Provider Student in an Organized Health Care Education/Training Program; Visit Provider Student in an Organized Health Care Education/Training Program
DX: N05.9 Unspecified nephritic syndrome with unspecified morphologic changes (principal); D64.9 Anemia, unspecified; N25.81 Secondary hyperparathyroidism of renal origin; R80.9 Proteinuria, unspecified
CPT/HCPCS: 36415; 80048; 82570; 83970; 84156; 85014; 85018

== ENCOUNTER → 2023-07-13 09:58 | Outpatient (CLI) | payer MEDICARE, OTHER, SELFPAY ==
[2023-07-13 11:51] LABS: Hematocrit 39.6 % (41-53); Hemoglobin 13.2 g/dL (13.5-17.5)
[2023-07-13 12:27] LABS: BUN Creatinine Ratio 19.3 (6-22); Blood Urea Nitrogen 27 mg/dL (9-20); Calcium 9.1 mg/dL (8.4-10.2); Carbon Dioxide 27 mmol/L (22-32); Chloride 104 mmol/L (98-107); Estimated Glomerular Filt Rate 52 mL/min (>60); Glucose 107 mg/dL (80-110); HEMOLYSIS < 15 (0-50); Sodium 136 mmol/L (137-145)
[2023-07-13 13:10] LABS: Creatinine Urine Random 89.1 mg/dL
[2023-07-13 13:43] LABS: Protein (Total) Urine Random < 5 mg/dL (0-12); Protein Creatinine Ratio Urine 0.05 GRAM/24H
[2023-07-14 11:23] LABS: Parathyroid Hormone Int 61 pg/mL (15-65)
== END ==
PROVIDERS: Family Provider Physician Assistant; PCP Physician Assistant; Referring Provider Student in an Organized Health Care Education/Training Program; Visit Provider Student in an Organized Health Care Education/Training Program
DX: N05.9 Unspecified nephritic syndrome with unspecified morphologic changes (principal); R80.9 Proteinuria, unspecified; D64.9 Anemia, unspecified; N25.81 Secondary hyperparathyroidism of renal origin
CPT/HCPCS: 36415; 80048; 82570; 83970; 84156; 85014; 85018

== ENCOUNTER → 2024-02-07 09:28 | Outpatient (CLI) | payer MEDICARE, OTHER, SELFPAY ==
[2024-02-07 10:09] LABS: Hematocrit 39.9 % (41-53); Hemoglobin 13.1 g/dL (13.5-17.5)
[2024-02-07 12:33] LABS: Creatinine Urine Random 79.8 mg/dL
[2024-02-07 12:34] LABS: Protein (Total) Urine Random < 5 mg/dL (0-12); Protein Creatinine Ratio Urine 0.06 GRAM/24H
[2024-02-07 13:03] LABS: BUN Creatinine Ratio 16.8 (6-22); Blood Urea Nitrogen 25 mg/dL (9-20); Calcium 9.4 mg/dL (8.4-10.2); Carbon Dioxide 25 mmol/L (22-32); Chloride 106 mmol/L (98-107); Estimated Glomerular Filt Rate 48 mL/min (>60); Glucose 98 mg/dL (80-110); HEMOLYSIS < 15 (0-50); Potassium 4.6 mmol/L (3.4-5.1); Sodium 137 mmol/L (137-145)
[2024-02-12 07:58] LABS: Parathyroid Hormone Int 41 pg/mL (15-65)
== END ==
PROVIDERS: Family Provider Physician Assistant; PCP Physician Assistant; Referring Provider Student in an Organized Health Care Education/Training Program; Visit Provider Student in an Organized Health Care Education/Training Program
DX: N05.9 Unspecified nephritic syndrome with unspecified morphologic changes (principal); D70.9 Neutropenia, unspecified; D63.1 Anemia in chronic kidney disease; N25.81 Secondary hyperparathyroidism of renal origin; R80.9 Proteinuria, unspecified
CPT/HCPCS: 36415; 80048; 82570; 83970; 84156; 85014; 85018

== ENCOUNTER → 2024-04-14 10:06 | Outpatient (CLI) | payer MEDICARE, OTHER, SELFPAY ==
--- NOTE | 2024-04-14 10:08 | DI.RAD.S_ITS ---
PROCEDURE: XR KNEE LT 3V INDICATIONS: pain with hx of TKA TECHNIQUE: 3 views of the knee were acquired. COMPARISON: [facility], , KNEE 3V LEFT, 05/30/2016, 19:32. FINDINGS: Bones: Status post left total knee arthroplasty, in near anatomic alignment. No hardware complication. Heterotopic ossification about the medial tibial plateau, unchanged. Soft tissues: No joint effusion. No suspicious soft tissue calcifications. IMPRESSION: Postoperative changes. No hardware complication. Dictated by: Scarlet Machuca M.D. on 04/14/2024 at 13:38 Approved by: Scarlet Machuca M.D. on 04/14/2024 at 13:40
--- NOTE | 2024-04-14 10:08 | DI.RAD.S_ITS ---
PROCEDURE: XR KNEE RT 3V INDICATIONS: pain with hx of TKA TECHNIQUE: 3 views of the knee were acquired. COMPARISON: [facility], CR, XR KNEE LT 3V, 04/14/2024, 9:31. FINDINGS: Bones: Status post right knee total arthroplasty, in near anatomic alignment. No hardware complication. Multiple ossification about the superior pole of the patella the, which may represent prior injury versus intra-articular bodies. Patellar osteophyte, which appears fractured on sunrise view, age indeterminate. Soft tissues: No joint effusion. No suspicious soft tissue calcifications. IMPRESSION: Fracture of the patella osteophyte, age indeterminate. Postoperative changes. No hardware complication. Dictated by: Scarlet Machuca M.D. on 04/14/2024 at 13:40 Approved by: Scarlet Machuca M.D. on 04/14/2024 at 13:44
== END ==
PROVIDERS: Family Provider Physician Assistant; PCP Physician Assistant; Referring Provider Physical Medicine & Rehabilitation; Visit Provider Physical Medicine & Rehabilitation
DX: S82.091A Other fracture of right patella, initial encounter for closed fracture (principal); S86.819A Strain of other muscle(s) and tendon(s) at lower leg level, unspecified leg, initial encounter; Z96.653 Presence of artificial knee joint, bilateral
CPT/HCPCS: 73562

== ENCOUNTER → 2024-08-04 10:17 | Outpatient (CLI) | payer MEDICARE, OTHER, SELFPAY ==
[2024-08-04 11:14] LABS: Hematocrit 37.8 % (41-53); Hemoglobin 12.5 g/dL (13.5-17.5)
[2024-08-04 12:13] LABS: Creatinine Urine Random 108.65 mg/dL
[2024-08-04 12:14] LABS: Protein (Total) Urine Random < 5 mg/dL (0-12); Protein Creatinine Ratio Urine 0.04 GRAM/24H
[2024-08-04 12:16] LABS: BUN Creatinine Ratio 16.8 (6-22); Blood Urea Nitrogen 26 mg/dL (9-20); Calcium 9.1 mg/dL (8.4-10.2); Carbon Dioxide 23 mmol/L (22-32); Chloride 106 mmol/L (98-107); Estimated Glomerular Filt Rate 46 mL/min (>60); Glucose 108 mg/dL (80-110); HEMOLYSIS < 15 (0-50); Potassium 4.9 mmol/L (3.4-5.1); Sodium 136 mmol/L (137-145)
[2024-08-05 10:36] LABS: Parathyroid Hormone Int 52 pg/mL (15-65)
== END ==
PROVIDERS: Family Provider Physician Assistant; PCP Physician Assistant; Referring Provider Student in an Organized Health Care Education/Training Program; Visit Provider Student in an Organized Health Care Education/Training Program
DX: N05.9 Unspecified nephritic syndrome with unspecified morphologic changes (principal); D70.9 Neutropenia, unspecified; D63.1 Anemia in chronic kidney disease; R80.9 Proteinuria, unspecified; N25.81 Secondary hyperparathyroidism of renal origin
CPT/HCPCS: 36415; 80048; 82570; 83970; 84156; 85014; 85018

== ENCOUNTER 2025-08-24 06:50 | Day surgery (SDC) | payer MEDICARE, OTHER, SELFPAY ==
--- NOTE | 2025-08-24 | PATH_ITS ---
[facility] Accession Number: [id number] No. of containers..06 Tissue . 01 Material submitted: . PART A: duodenum - DUODENAL BIOPSY PART B: gastrointestinal site - ANTRAL BIOPSY PART C: gastrointestinal site - GASTRIC, POLYP PART D: esophagus - ESOPHAGEAL BIOPSY PART E: cecum - CECAL POLYP PART F: sigmoid colon - SIGMOID POLYP @ 30 . 01 Diagnosis: Part A: DUODENAL BIOPSY: Duodenal mucosa with mild reactive changes suggestive of peptic duodenitis. No active inflammation and no evidence of celiac disease. . Part B: ANTRAL BIOPSY: Gastric antral mucosa with no diagnostic alterations. No Helicobacter organisms identified on H/E stain. No intestinal metaplasia, dysplasia, or malignancy identified. . Part C: GASTRIC, POLYP: Fundic gland polyp. No Helicobacter organisms identified on H/E stain. No intestinal metaplasia, dysplasia, or malignancy identified. . 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 No dysplasia identified. . Part E: CECAL POLYP: Polypoid colonic mucosa with no neoplasm identified. . Specimen Comments: Additional step sections were examined. . Part F: SIGMOID POLYP @ 30: Vegetable matter. No intact tissue present. [facility] 09/02/2025 1241 Local . 01 Electronically signed: . Arnaldo Guerrier MD, Pathologist NPI- [id number] . 01 Gross description: . A. Received in formalin with two identifiers and duodenal biopsy, are two swanson soft tissue fragments 0.3 cm each in greatest dimension. Submitted entirely in cassette A1. . B. Received in formalin with two identifiers and antral biopsy, are two swanson soft tissue fragments 0.3 to 0.4 cm in greatest dimension. Submitted entirely in cassette B1. . C. Received in formalin with two identifiers and gastric polyp, is a single swanson-brown soft tissue fragment 0.2 cm in greatest dimension. Submitted entirely in cassette C1. . D. Received in formalin with two identifiers and esophageal biopsy, are two swanson soft tissue fragments 0.2 cm each in greatest dimension. Submitted entirely in cassette D1. . E. Received in formalin with two identifiers and cecal polyp, is a single swanson to swanson-brown soft tissue fragment 1.1 cm in greatest dimension. Submitted entirely in cassette E1. . F. Received in formalin with two identifiers and sigmoid colon biopsy, is a 0.3 cm piece of fecal material. No definite tissue is grossly identified. Submitted entirely in cassette F1. ([id number]) /ADRIANNA 09/02/2025 1241 Local . 01 Pathologist provided ICD-10: K22.70, K29.80, K31.7, K63.5 . 01 CPT . 465780, 185911, 801573, 890763, 183892, [id number] Specimen Comment: A courtesy copy of this report has been sent to [facility] Pathology Performed at: [address] [address], [place], [place] [id number] MD Arnaldo Guerrier MD Phone: [phone]
--- NOTE | 2025-08-24 06:23 | PM.HP.IH.1 ---
History of Present Illness History of Present Illness Date Patient Seen: 08/24/25 Chief complaint: EGD & Colonoscopy w/poss bx Narrative: Patient presents for EGD/colonoscopy today to evaluate iron def anemia. [facility] Surgical History (Updated 04/14/24 @ 11:49 by Juni Liz DO) History of total knee arthroplasty Meds Home Medications and Allergies Home Medications ?Medication ?Instructions ?Recorded ?Confirmed ?Type ASPIRIN (Aspirin *) 0 mg PO QDAY ##0 01/07/10 06/03/25 History amlodipine 2.5 mg tablet 2.5 mg PO DAILY 06/03/25 06/03/25 History metoprolol succinate 25 mg 12.5 mg PO DAILY 06/03/25 06/03/25 History tablet,extended release 24 hr pantoprazole 40 mg tablet,delayed 40 mg PO DAILY 06/03/25 06/03/25 History release potassium citrate 5 mEq (540 mg) PO 06/03/25 06/03/25 History tablet,extended release rosuvastatin 40 mg tablet 40 mg PO DAILY 06/03/25 06/03/25 History tamsulosin 0.4 mg capsule 0.8 mg PO DAILY 06/03/25 06/03/25 History sodium,potassium,mag sulfates 17.5 See Rx Instructions PO .COMPLEX 07/28/25 Rx gram-3.13 gram-1.6 gram oral soln #354 mL (Suprep Bowel Prep Kit) Allergies Allergy/AdvReac Type Severity Reaction Status Date / Time No Known Drug Allergies Allergy Verified 08/21/25 15:29 Exam Narrative Exam Narrative: Const General: healthy appearing, comfortable and no acute distress Orientation: alert and oriented x3 HENMT Ears: hearing grossly normal bilaterally Eyes Visual Herrera: normal visual herrera by confrontation Conjunctivae: conjunctivae normal Sclera: sclerae normal EOM: EOM intact bilaterally Resp Effort & Inspection: normal respiratory effort and able to speak in complete sentences Cardio Rate: regular rate GI Palpation: soft (NT) Extrem General: no pedal edema and no calf tenderness Assessment & Plan Assessment and plan (1) Iron deficiency anemia: Qualifiers: Iron deficiency anemia type: unspecified iron deficiency Qualified Code(s): D50.9 - Iron deficiency anemia, unspecified Status: Acute Plan Plan EGD/colonoscopy, possible biopsy. The risks, benefits and options regarding the procedure were explained to the patient in detail. Risk discussion included but not limited to: bleeding, perforation, unable to reach cecum, missed lesion. The patient was encouraged to ask questions and they were answered to their satisfaction. The patient understands and is agreeable to proceed. Time-Based Coding :: [TOTAL MINUTES] spent with patient and on the chart (including review of chart, obtaining history, exam, reviewing outside data, placing orders, documenting exam and treatment plan, and counseling patient) on [DATE]. 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
[2025-08-24 07:16] VITALS: BP 144/83; PULSE 86; RESP 16; TEMP 36.5; O2SAT 98
[2025-08-24] MEDS: LACTATED RINGERS 1,000 ML 42 ML IV (07:23)
--- NOTE | 2025-08-24 07:29 | P.OP.EGD&C_ITS ---
Operative Date/Time/Diagnoses Date of procedure: 08/24/25 Time of procedure: 08:27 Pre-op diagnosis: Iron deficiency anemia Post-op diagnosis: other (Hiatal hernia, mild esophagitis, Az's erosion, moderate gastritis, duodenitis, gastric polyp, paraesophageal hernia vs gastric polyp in fundus) Procedure & Clinicians Study performed: EGD with biopsy, colonoscopy wiht polypectomy Same procedure(s) as scheduled: Yes Indications: 80yo M with iron deficiency anemia Surgeon: Saman Portillo Anesthesia Type: MAC +/- Procedure Notes SCOAP/Timeout: Performed Procedure in detail: EGD Informed consent was obtained. The procedure, its risks, benefits, and alternatives were discussed. Patient understood and agreed to proceed. The patient was placed in the left lateral decubitus position with head elevated. Sedation given per anesthesia. The video endoscope was inserted into the oropharynx and guided under direct vision into the esophagus, stomach, and duodenum which were carefully examined. The scope was retroflexed to examine the hiatus and gastroesophageal junction. Antral biopsies were obtained for Helicobacter pylori. The patient tolerated the procedure very well. There were no apparent complications. Significant EGD findings: Z-line noted at: 38cm LA Grade A esophagitis, biopsied 4cm hiatal hernia with stasis gastritis and Az's erosion Diffuse moderate gastritis in antrum and body of stomach, antrum biopsied Duodenitis, biopsied Retroflex view demonstrates 2cm paraesophageal hernia (versus gastric diverticulum) in addition to sliding hiatal hernia Colonoscopy Patient placed in left lateral recumbent position. Time out was performed. Proce dural sedation was administered by anesthesia. Examination began with a thorough inspection of the perianal area. There was no evidence of fissures, fistulae, external hemorrhoids or cutaneous malignancy. The colonoscope was then placed into the rectum and the lumen was insufflated with carbon dioxide. The scope was carefully advanced forward. Ultimately the cecum was intubated and confirmed by identification of the ileocecal valve, the appendiceal orifice and the confluence of the taenia. The scope was then slowly withdrawn examining the colon thoroughly in all directions. In the rectum, retroflexion of the scope was performed for inspection of the distal rectum and anal canal. ?Significant colonoscopy findings: ?1. Quality of the preparation-good, [place] 2-3, improved with irrigation/suction ?2. 5mm polyps X 2; sessile, benign appearing, adenomatous appearing, one in cecum, one in sigmoid, both removed with cold snare and retrieved for pathology 3. 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 Possible H pylori. Check H pylori testing results. Consider empiric treatment for H pylori due to significant false negative rate. Scope withdrawal time: 13 minutes Findings: diverticulosis, gastritis, hiatal hernia and other findings (Az's erosion, paraesophageal hernia vs gastric polyp in fundus) Specimen(s): other (biopsies) Estimated Blood Loss: 5 Complications: none Impression: Hiatal hernia, mild esophagitis, Az's erosion, moderate gastritis, duodenitis, gastric polyp, paraesophageal hernia vs gastric polyp in fundus, colon polyps, diverticulosis Post-procedure Recommendations: Colonscopy in 5 years and Will call with biopsy results Plan for aftercare: PPI for gastritis Consider empiric treatment for H pylori Follow up: as needed Disposition: PACU
[2025-08-24 08:30] VITALS: BP 111/53; PULSE 70; RESP 15; TEMP 37.2; O2SAT 94
[2025-08-24 08:35] VITALS: BP 114/63; PULSE 69; RESP 15; TEMP 37.1; O2SAT 97
== END 2025-08-24 08:57 | disposition home or self-care (01) ==
PROVIDERS: Family Provider Physician Assistant; PCP Physician Assistant; Referring Provider Physician Assistant; Visit Provider Surgery
PROC: 0DJ08ZZ Inspection of Upper Intestinal Tract, Via Natural or Artificial Opening Endoscopic (ICD-10-PCS; CPT 45385; principal; 2025-08-24 07:45)
PROC: 0DJD8ZZ Inspection of Lower Intestinal Tract, Via Natural or Artificial Opening Endoscopic (ICD-10-PCS; CPT 45378; 2025-08-24 07:45)
DX: D50.9 Iron deficiency anemia, unspecified (principal); K22.70 Barrett's esophagus without dysplasia; K31.7 Polyp of stomach and duodenum; K44.9 Diaphragmatic hernia without obstruction or gangrene; K20.90 Esophagitis, unspecified without bleeding; K25.9 Gastric ulcer, unspecified as acute or chronic, without hemorrhage or perforation; K29.70 Gastritis, unspecified, without bleeding; K29.80 Duodenitis without bleeding; K57.30 Diverticulosis of large intestine without perforation or abscess without bleeding; I10 Essential (primary) hypertension; E78.5 Hyperlipidemia, unspecified; I25.10 Atherosclerotic heart disease of native coronary artery without angina pectoris; Z95.1 Presence of aortocoronary bypass graft
CPT/HCPCS: 45385; 43239; J2704; J7120